=== PATIENT | female | born 1965 | race Caucasian/White ===

== ENCOUNTER → 2023-06-15 13:38 | Outpatient (CLI) | payer OTHER, SELFPAY ==
--- NOTE | 2023-06-15 13:40 | DI.RAD.S_ITS ---
PROCEDURE: XR ANKLE LT MIN 3V INDICATIONS: ankle pain TECHNIQUE: 3 views of the ankle were acquired. COMPARISON: None. FINDINGS: Bones: No fractures or dislocations. Ankle mortise is normally aligned. No suspicious bony lesions. Mild tibiotalar joint osteoarthritis. Large plantar calcaneal bone spur. Soft tissues: No tibiotalar joint effusion. Achilles tendon appears normal. IMPRESSION: Mild tibiotalar joint osteoarthritis. Large calcaneal bone spur. Dictated by: Latesha Scott MD, PhD on 06/15/2023 at 14:31 Approved by: Latesha Scott MD, PhD on 06/15/2023 at 14:32
[2023-06-15 14:12] LABS: Add Manual Diff / Slide Review NO; Basophils Absolute Auto 100 /uL (0-100); Basophils Percent Auto 1.1 % (0-2); Eosinophils Absolute Auto 100 /uL (0-450); Eosinophils Percent Auto 1.4 % (2-4); Hematocrit 38.9 % (36-46); Lymphocytes Absolute Auto 2200 /uL (1100-4500); Lymphocytes Percent Auto 28.3 % (25-40); Mean Corpuscular HGB Conc 33.4 % (30-36); Mean Corpuscular Hemoglobin 29.6 PG (26-34); Mean Corpuscular Volume 88.8 fL (80-100); Monocytes Absolute Auto 500 /uL (0-900); Neutrophils Absolute Auto 4800 /uL (1500-7000); Neutrophils Percent Auto 62.2 % (50-75); Platelet Count 305 X10^3/uL (150-400); Red Blood Cell Count 4.38 X10^6/uL (4.0-5.2); Red Cell Distribution Width 13.2 % (11.6-14.8); White Blood Cell Count 7.7 X10^3/uL (4.5-11.0)
[2023-06-15 14:19] LABS: Hemoglobin A1C% w Est Avg Glu 5.5 % (4.0-6.0)
[2023-06-15 14:30] LABS: Alanine Aminotransferase 15 IU/L (<35); Albumin 4.6 g/dL (3.5-5.0); Albumin Globulin Ratio 1.3 (1.0-2.8); Alkaline Phosphatase 113 U/L (38-126); Aspartate Aminotransferase 26 IU/L (14-36); BUN Creatinine Ratio 18.4 (6-22); Bilirubin Total 0.5 mg/dL (0.2-1.3); Blood Urea Nitrogen 16 mg/dL (7-17); Calcium 9.5 mg/dL (8.4-10.2); Carbon Dioxide 25 mmol/L (22-32); Chloride 103 mmol/L (98-107); Cholesterol 177 mg/dL (140-199); Estimated Glomerular Filt Rate > 60 mL/min (>60); Globulin 3.5 g/dL (1.7-4.1); Glucose 88 mg/dL (70-100); HDL Cholesterol 55 mg/dL (40-60); HEMOLYSIS 17 (0-50); LDL Cholesterol Calculated 98 mg/dL (<100); Potassium 4.1 mmol/L (3.4-5.1); Sodium 137 mmol/L (137-145); Total Protein 8.1 g/dL (6.3-8.2); Triglycerides 121 mg/dL (35-150)
[2023-06-15 15:15] LABS: Vitamin D 25 Hydroxy (D3) 37.3 ng/mL (30.0-100.0)
[2023-06-15 15:18] LABS: Erythrocyte Sedimentation Rate 32 MM/HR (0-20); Vitamin B12 754 pg/mL (239-931)
== END ==
PROVIDERS: PCP Family Medicine; Referring Provider Family Medicine; Visit Provider Family Medicine
DX: E66.01 Morbid (severe) obesity due to excess calories (principal); R20.0 Anesthesia of skin; R20.2 Paresthesia of skin; Z00.00 Encounter for general adult medical examination without abnormal findings; M19.072 Primary osteoarthritis, left ankle and foot; M77.32 Calcaneal spur, left foot
CPT/HCPCS: 36415; 73610; 80053; 80061; 82306; 82607; 83036; 84443; 85025; 85651

== ENCOUNTER → 2023-07-07 13:38 | Outpatient (CLI) | payer OTHER, SELFPAY ==
[2023-07-07 14:19] LABS: Erythrocyte Sedimentation Rate 27 MM/HR (0-20)
[2023-07-07 14:23] LABS: Rheumatoid Factor < 8.6 IU/mL (<12.0)
[2023-07-10 15:38] LABS: Albumin 3.9 g/dL (2.9-4.4); Alpha-1-Globulin 0.2 g/dL (0.0-0.4); Alpha-2-Globulin 0.7 g/dL (0.4-1.0); Gamma Globulin 1.3 g/dL (0.4-1.8); Globulin Total 3.3 g/dL (2.2-3.9); Protein, Total 7.2 g/dL (6.0-8.5)
[2023-07-11 13:32] LABS: Alpha-1 Globulin, Ur 2.5 % (.); Beta Globulin, Ur 12.2 % (.); Gamma Globulin, Ur 6.8 % (.); M-Spike % Not Observed % (Not Observed)
[2023-07-12 16:50] LABS: ANA Screen, IFA Negative (.)
== END ==
PROVIDERS: PCP Family Medicine; Referring Provider Family Medicine; Visit Provider Family Medicine
DX: G43.909 Migraine, unspecified, not intractable, without status migrainosus (principal); R20.0 Anesthesia of skin; R20.2 Paresthesia of skin
CPT/HCPCS: 36415; 84155; 84156; 84165; 84166; 85651; 86038; 86430

== ENCOUNTER 2024-07-29 20:35 | Emergency (ER) | payer OTHER, SELFPAY ==
[2024-07-29 20:44] VITALS: BP 143/86; PULSE 89; RESP 16; TEMP 36.7; O2SAT 97; BMI 40.7
--- NOTE | 2024-07-30 03:08 | ED.WOUNDLAC ---
HPI - Wound/Laceration General Chief Complaint: Wound/Laceration Stated Complaint: L Hand Laceration Source: patient Mode of arrival: Ambulatory History of Present Illness HPI narrative: Patient left without being seen by provider Related Data Previous Rx's Medication Instructions Recorded albuterol sulfate 90 mcg/actuation 2 puff inhalation Q6H PRN 07/26/23 aerosol inhaler shortness of breath or wheezing #6.7 grams bupropion HCl 150 mg 24 hr tablet, 150 mg PO QAM #90 tabs 04/15/24 extended release Allergies Allergy/AdvReac Type Severity Reaction Status Date / Time Sulfa (Sulfonamide Allergy Mild Unknown Verified 10/31/23 09:04 Antibiotics) Patient History Medical History (Updated 07/29/24 @ 23:35 by Karuna Gleason RN) Allergies Depression Migraines Chicken pox (~1966) Family History (Updated 06/20/23 @ 20:24 by Jaycee New) Father Cancer Hypertension Mother History of heart disease Hypertension Sister History of heart disease Grandfather Alzheimer's disease Grandmother Dementia Grandfather Appendix disease Grandmother Diabetes mellitus Stroke Family/Other Mental health problem Social History Smoking Status: Never smoker Smoking Status: Never smoker Exam Initial Vital Signs Initial Vital Signs: Vital Signs Temperature 98.0 F 07/29/24 20:44 Pulse Rate 89 07/29/24 20:44 Respiratory Rate 16 07/29/24 20:44 Blood Pressure 143/86 H 07/29/24 20:44 Pulse Oximetry 97 07/29/24 20:44 Oxygen Delivery Method Room Air 07/29/24 20:44 Course Vital Signs Vital signs: Vital Signs - 8 hr 07/29/24 20:44 Temperature 98.0 F Pulse Rate 89 Respiratory Rate 16 Blood Pressure 143/86 H Pulse Oximetry 97 Oxygen Delivery Method Room Air Discharge Plan Departure Patient Disposition: Left Without Being Seen Clinical Impression: Patient left after triage Prescriptions: No Action albuterol sulfate 90 mcg/actuation HFA aerosol inhaler 2 puff inhalation Q6H PRN (Reason: shortness of breath or wheezing) Qty: 6.7 1RF bupropion HCl 150 mg tablet extended release 24 hr 150 mg PO QAM Qty: 90 1RF
== END 2024-07-29 23:32 | disposition left against medical advice (07) ==
PROVIDERS: Emergency Provider Emergency Medicine; PCP Family Medicine
CPT/HCPCS: 99281

== ENCOUNTER → 2025-01-22 18:19 | Outpatient (CLI) | payer OTHER, SELFPAY | PROVIDERS: PCP Family Medicine; Visit Provider Nurse Practitioner Family | DX: R30.0 Dysuria (principal) | CPT/HCPCS: 87077; 87086; 87186 ==

== ENCOUNTER → 2025-02-04 17:41 | Outpatient (CLI) | payer OTHER, SELFPAY | LOC: LAB 17:42 | PROVIDERS: PCP Family Medicine; Visit Provider Chiropractor | DX: R30.0 Dysuria (principal) | CPT/HCPCS: 87077; 87086 ==